=== PATIENT | male | born 1965 | race African-American/Black ===

== ENCOUNTER 2021-03-15 12:20 | Emergency (ER) | payer BC ==
[2021-03-15] MEDS ORDERED: Fluorescein Opthalmic Strip ONE (12:48)
[2021-03-15] MEDS ORDERED: Proparacaine 0.5% Opth 15 ML BOT ONE (12:48)
== END 2021-03-15 14:00 | disposition home or self-care (01) ==
LOC: ERS 12:20
DX: S05.02XA Injury of conjunctiva and corneal abrasion without foreign body, left eye, initial encounter (principal); I10 Essential (primary) hypertension; E11.9 Type 2 diabetes mellitus without complications; Z79.899 Other long term (current) drug therapy; Z79.84 Long term (current) use of oral hypoglycemic drugs; X58.XXXA Exposure to other specified factors, initial encounter
CPT/HCPCS: 93005

== ENCOUNTER 2024-07-09 23:48 | Emergency (ER) | payer OTHER ==
[2024-07-10] MEDS ORDERED: Ketorolac Tromethamine 30 MG (1 mL) VIAL ONE (02:10)
== END 2024-07-10 02:43 | disposition home or self-care (01) ==
LOC: ERS 23:48
DX: S63.592A Other specified sprain of left wrist, initial encounter (principal); S39.012A Strain of muscle, fascia and tendon of lower back, initial encounter; I10 Essential (primary) hypertension; E11.9 Type 2 diabetes mellitus without complications; V43.52XA Car driver injured in collision with other type car in traffic accident, initial encounter; Y93.89 Activity, other specified
CPT/HCPCS: 96372; 99283; J1885

== ENCOUNTER 2025-07-11 17:13 | Emergency (ER) | payer OTHER ==
[2025-07-11] MEDS ORDERED: Cyclobenzaprine 10 MG TAB ONE ×2 (18:04→18:06)
[2025-07-11] MEDS ORDERED: Ketorolac Tromethamine 30 MG (1 mL) VIAL ONE (18:04)
== END 2025-07-11 18:55 | disposition home or self-care (01) ==
LOC: ERS 17:13
DX: S46.911A Strain of unspecified muscle, fascia and tendon at shoulder and upper arm level, right arm, initial encounter (principal); I10 Essential (primary) hypertension; E11.9 Type 2 diabetes mellitus without complications; X50.0XXA Overexertion from strenuous movement or load, initial encounter
CPT/HCPCS: 96372; 99283; J1885